=== PATIENT | female | born 1990 | race Caucasian/White ===

== ENCOUNTER 2019-10-23 06:55 | Inpatient (IN) | payer OTHER, SELFPAY ==
[2019-10-23] VITALS (49 sets, daily range): BP systolic 106–132; BP diastolic 58–77; PULSE 68–106; TEMP 35.9–36.7; O2SAT 97–99; BMI 34.7
[2019-10-23] MEDS: Lactated Ringers 1,000 ML 50 ML IV (08:00)
[2019-10-23] MEDS: Oxytocin 30 units/NS 500 ml 30 UNITS/500 ML IV.SOLN IV (08:00)
--- NOTE | 2019-10-23 08:16 | HP.PCM_ITS ---
- Problem List (1) 40 weeks gestation of Status: Acute History Date of Admission: 10/23/19 Final MAY: 10/23/19 Final MAY Source: [place] <20 weeks Gestational age: 40 Weeks and 0 Days History of this : This is a 29 year-old, G [2], P [1], at 40 weeks gestational age. Allergies No Known Allergies Allergy (Verified 10/23/19 07:37) Home Medications: Home Medications Vit No.130/Iron/Folic [ Tablet] 1 ea PO DAILY 10/23/19 Sertraline HCl 50 mg PO DAILY 10/23/19 Smoking Status: Never smoker Alcohol: None Number of Fetus(es): 1 NST - FHR Rate Baby A Baseline: 145 Variability:: Moderate Accelerations:: 15 x 15 Decelerations:: None NST Reactive:: Yes FHR Category:: Category I Uterine Activity:: Q7-8 minutes History Past Pregnancies: PRIOR DELIVERY HISTORY DEL DATE GEST LAB WT LB WT OZ TYPE ANES LABOR [place] 16 Oct 12 39 20 7 8 Vag Epidural No Expected Infant Delivery Method: Spontaneous Vaginal Number of Visits: 14 Review of Systems Constitutional: Denies: Chills, Fever, Weight Change HEENT: Denies: Head Aches, Sinus Congestion, Sinus Drainage Cardiovascular: Denies: Chest Pain, Palpitations Respiratory: Denies: Cough, Shortness of breath at rest, Sputum production Gastrointestinal: Denies: Abdominal Pain, Nausea, Vomiting Genitourinary: Denies: Dysuria Musculoskeletal: Denies: Joint Pain, Joint Tenderness Skin: Denies: Rash, Wounds Neurological: Denies: Numbness, Tingling, Focal weakness Psychiatric: Denies: Anxiety, Depression, Homicidal Ideations, Suicidal Ideations Hematologic/ Lymphatic: Denies: Easy Bruising, Easy Bleeding Physical Exam Vitals: Vital Signs Temp Pulse BP Pulse Ox 97.3 F L 106 H 121/64 H 98 10/23/19 07:35 10/23/19 07:36 10/23/19 07:36 10/23/19 07:36 General: Alert, Oriented x3, No apparent distress HEENT: Atraumatic, Normocephalic. Negative for: Thyromegaly, Lymphadenopathy Cardiovascular: Regular rate, Regular Rhythm Lungs: Clear to auscultation Abdomen: Bowel Sounds Present, Gravid Neurological: Deep Tendon Reflexes 2+/4 and Symmetrical, Neuro grossly intact MANUFACTURING PROCESS TECHNICIAN: Normal external genitalia. Negative for: Vulvar lesions Estimated gestational size: Appropriate for gestational size Presentation: Cephalic Cervix Dilation (cm): 1.5 Station: -2 Effacement (%): 50 Assessment/Plan All Active Problems 40 weeks gestation of (Acute) A/P: This is a 29 year-old, G [2], P [1], at 40 weeks gestational age. Medical induction for decreased movement at term Continuous monitoring Pitocin induction Plans epidural when uncomfortable and declines AROM until after epidural is placed Expect
[2019-10-23 08:23] LABS: Absolute Lymphocyte Count 2.67 X10^3/uL (0.83-4.51); Absolute Neutrophil Count 6.4 X10^3/uL (2.0-7.7); Basophil# 0.09 X10^3/uL; Basophil% 0.8 % (0-1); Eosinophil# 0.25 X10^3/uL; Eosinophils% 2.3 % (0-5); Hematocrit 34.5 % (37-47); Hemoglobin 11.6 g/dL (12.0-15.0); Lymphocyte # 2.67 X10^3/ul (4.0); Mean Corp Hgb Conc 33.6 g/dL (32-36); Mean Corpuscular Hgb 32.2 pg (27.0-32.0); Mean Corpuscular Volume 95.8 fL (81-99); Mean Platelet Vol. 8.7 fl (6.2-12.0); Monocyte# 0.84 X10^3/uL; Monocyte% 7.9 % (0-10); NRBC Flagged by Analyzer 0 % (0-5); Neutrophil # 6.39 X10^3/uL (2.7-7.7); Neutrophil % 59.8 % (47-70); Platelet Count 191 K/mm3 (150-450); RBC Distribution Width SD 48.7 fl (35.1-43.9); White Blood Count 10.7 K/mm3 (4.4-11.0)
--- NOTE | 2019-10-23 13:56 | PCM.PN.BLA ---
Progress Note S: Feeling contractions in the front of stomach and starting to feel them in the lower back. Pain is a 10/14. O: VSS UC Q2-4 minutes FHR 130, +accels, - decels, moderate variability SVE 50/-1 soft anterior A: Induction of labor Pitocin at 12 NST Category I P: To get epidural once contractions are stronger Encouraged to get out of bed or at least do side to side or some hands and knees while in bed Wants AROM after epidural is in place Expect STROKE Vital Signs/Narrative: Vital Signs Temp Pulse BP Pulse Ox 10/23/19 13:50 97.1 F L 82 117/71 99 10/23/19 12:59 82 98 10/23/19 12:58 97.2 F L 126/77 H 10/23/19 12:02 81 98 10/23/19 12:01 96.8 F L 117/64 98 10/23/19 11:00 97.1 F L 81 110/62 98
[2019-10-23] MEDS: Lactated Ringers 500 ML 999 ML IV (15:58)
[2019-10-23] MEDS: fentaNYL-bupivacaine (epidural) 100 ML BAG EPIDURAL ×2 (17:17→21:25)
--- NOTE | 2019-10-23 17:47 | PCM.PN.BLA ---
Progress Note S: Comfortable with epidural in. Able to feel legs and can feel the peak of her contractions at the top of her fundus, but pressure no pain. O: VSS SVE 3/50/-1 anterior soft UC Q2-3 minutes FHR baseline 145, + accels, -decels, moderate variability A: AROM clear fluid Pitocin 18u Pain controlled with epidural NST Category I FHR P: Plans to nap and rest Continue IOL Expect STROKE Vital Signs/Narrative: Vital Signs Temp Pulse BP Pulse Ox 10/23/19 17:38 85 119/73 10/23/19 17:33 86 99 10/23/19 17:31 76 122/67 H 10/23/19 17:28 81 98 10/23/19 17:26 87 120/68 10/23/19 17:23 84 98 10/23/19 17:22 119/69 10/23/19 17:18 81 117/61 98 10/23/19 17:13 85 117/58 L 99 10/23/19 17:08 88 98 10/23/19 17:07 95 111/62 10/23/19 17:03 94 124/68 H 98 10/23/19 16:58 83 98 10/23/19 16:57 120/65 10/23/19 16:53 93 98 10/23/19 16:51 94 132/62 H 10/23/19 16:48 88 99 10/23/19 16:47 90 132/64 H 10/23/19 16:43 89 99 10/23/19 16:42 88 124/69 H 10/23/19 16:38 84 98 10/23/19 16:37 127/60 H 10/23/19 16:26 82 120/63 10/23/19 15:38 98.0 F 95 97 10/23/19 15:37 116/66 10/23/19 14:45 84 97 10/23/19 14:44 89 110/62 10/23/19 14:43 98.1 F 10/23/19 13:50 97.1 F L 82 117/71 99
[2019-10-23] MEDS: Lactated Ringers 1,000 ML 200 ML IV (19:37)
[2019-10-23] MEDS: Mag Hydrox/Al Hydrox/Simeth 30 ML UDC PO (20:23)
[2019-10-23] MEDS: Ondansetron 4 MG/2 ML Vial IV (22:17)
[2019-10-23] MEDS: Oxytocin 30 units/NS 500 ml 30 UNITS/500 ML IV.SOLN 334 UNITS IV (23:41)
[2019-10-24] VITALS (20 sets, daily range): BP systolic 97–117; BP diastolic 57–65; PULSE 72–92; RESP 16–18; TEMP 36.3–36.6; O2SAT 98
--- NOTE | 2019-10-24 | PLAC_PTH ---
PATIENT: ANG ROJAS LOC: [facility] U#:[id number] AGE/SX: 29/F ROOM: WP020 RE10/23/[address]: Ruth David CNM : 1990 BED: 1 DIS: 10/25/2019 SPEC #: [id number] RECD: 10/24/19 04:59 STATUS: HOANG REQ #: [id number] SANGEETA: 10/24/19 00:[address]: Ruth David DEPT: SURGICAL PATHOLOGY RECD BY: Neil Corrales ENTERED: 10/24/19 07:41 SP TYPE: PLACENTA OTHR DR: Dr. Ramy Pena, DO Tissues: Placenta, NOS Procedures: Surgery Specimen Level V HEADER OPERATION: Vaginal delivery PRE-OP DIAGNOSIS: Abruption TISSUE SUBMITTED: Placenta MICROSCOPIC DIAGNOSIS Navarrete placenta (567 gm): Umbilical cord - trivascular with no inflammation. Placental membranes - no pathologic change. Placental disc - Willis-Jean change, mildly increased intraparenchymal fibrin plaques and remote infarct. AM:giovanna 10/28/19 MICROSCOPIC DESCRIPTION Slides are reviewed. GROSS DESCRIPTION SPECIMEN: PLACENTA / CLINICAL INFORMATION: A. Weight: 3.641 kg B. Gestational Age: 40 weeks C. Sex: Female PLACENTAL WEIGHT (POST FIXATION): 567 gm PLACENTAL DIMENSIONS: 19 x 18 x 3.5 cm PLACENTAL SHAPE: Usual ovoid PLACENTAL WEIGHT FOR GESTATIONAL AGE: Within 10-99th percentile MEMBRANES - Present A. Insertion: Marginal B. Site of rupture from edge: 8 cm from edge of placental disc C. Color of membrane: Box-beyer D. Abnormalities: None UMBILICAL CORD - Present A. Color: Box-beyer B. Insertion: Central C. Length: 56 cm D. Diameter: 1 cm E. Number of vessels: Three F. Abnormalities: None PLACENTAL DISC - Present A. Color of surface: Box-beyer B. surface abnormalities: None C. Maternal cotyledons: Intact with minimal tears. A small amount of blood clots are noted adherent to the maternal surface of placenta. D. Attached retro placental clot: No clot E. Cut surface: Dark red and spongy F. Lesions: Sections reveal a box, indurated area in the peripheral portion of the placenta measuring 2.5 x 1.5 x 1.5 cm. G. Separate clot: Also submitted are multiple fragments of blood clot weighing in aggregate 75 gm and measuring in aggregate 11 x 9 x 3 cm. SECTIONS SUBMITTED: 1. Membrane roll 2. Cord, maternal end 3. Cord, end 4. Placental disc, and maternal surfaces 5. Placental disc, and maternal surfaces 6. Placental disc, and maternal surfaces, lesion SJ:giovanna 10/25/19 TC:5 CPT: 74048
[2019-10-24] MEDS: Methylergonovine 0.2 MG/ML Ampul IM (00:07)
[2019-10-24] MEDS: miSOPROStol 200 MCG Tablet 1000 MCG RECTAL (00:27)
--- NOTE | 2019-10-24 00:37 | OP.PCM_ITS ---
Problem List (1) 40 weeks gestation of Status: Acute Vaginal Delivery Maternal Presentation: Medically Indicated Induction Method of Induction: Pitocin Medical Reason for Induction: - - Decreased movement at term Amniotic Membrane Rupture Type: Artificial Rupture of Membrane time: 1854 Amniotic Fluid Description: Clear Final MAY: 10/23/19 Gestational age: 40 Weeks and 1 Days Date of Procedure: 10/23/19 Pre-Operative Diagnosis: labor Post-Operative Diagnosis: Surgery/ Procedure Performed: Spontaneous Vaginal Delivery Type of Anesthesia: Epidural Description of Procedure: Patient was FD/+3 station on arrival to room. Patient began to push followed by decreased heart rate. Left side laying position with Dr. Freitas pagekandice. On left side with Dr. Freitas present, patient was able to push and delivered head in OA with loose nuchal x1 reduced at perineum. Body easily delivered over with a loose body cord x1. The infant was placed on the maternal abdomen and further attended by nursery personnel with bulb suction and stimulation. The cord was doubly clamped then cut by FOB with CNM supervision at approximately 30 seconds of life. was taken to warmer to be evaluated by product support technician and nursery personnel. IV Pitocin started per protocol. At this time, Dr. Freitas excused from room. Second degree perineal lacerated noted and repaired with a 3.0 rapide. With gentle cord traction spontaneous delivery of placenta followed immediately by 400mL of blood. Fundal massage given, firm and midline, but continual trickle of blood. Methergine IM given in right thigh. Manual expression of retained fragments in which patient tolerated well. On inspection placenta appeared to have a three vessel cord, but placenta in fragments, signs of infarction with possible abruption. Placenta sent to lab. Fundus firm and midline upon massage, but 50mL blood out with massage. Cytotec 1000mcg rectal given per senior writer. EBL 450. Apgars 7/9. Sponge counts correct x 2. Presentation: Vertex, YANNA Placental Delivery Description: Spontaneous - with retained fragments manually expressed Placenta Disposition: Routine to Lab Cord Vessel Description: 3 Vessels Cord Entanglement: Around neck x 1, loose - and body loose Drain: Prince to straight drain Estimated Blood Loss: 450 Infant A gender: Female (1 minute): 7 (5 minute): 9 Episiotomy Description: None Laceration: Perineal Extension/lac, 2nd degree Medications given after delivery: IV Pitocin, IM Methergin, - - Cytotec 1000mcg
--- NOTE | 2019-10-24 00:50 | DCINST_ITS ---
Discharge Diet: No Restrictions Discharge Activity: Return to Normal Activity, May not drive while taking narcotic pain medications., May Shower May resume sexual activity in: 4-6 weeks Additional Activity Instructions:: Nothing in the vagina for 4-6 weeks. You may return to work/school in 6 weeks. Call your doctor if your incision/area has: Continuous Slow Oozing, Sudden Increased Bleeding, Increased Pain/ Swelling, Increased Redness, Foul Smelling Discharge Additional Instructions: If you experience any of the following, contact your healthcare provider. * Bleeding that soaks a pad every hour for 2 hours * Fever 100.4 or higher * Unrelieved incision or abdominal pain * Swelling, redness, discharge or bleeding from your incision or episiotomy site * Your incision begins to separate * Problems urinating (including inability to urinate or burning while urinating). * Visual changes * Severe headache * Flu-like symptoms * Pain or redness in one of both of your breasts * Pain, warmth, tenderness or swelling in your legs, especially the calf area * Frequent nausea and vomiting * Symptoms of depression or anxiety If you experience any of the following, call 911 or go to the nearest Emergency Room. * Chest pain * Problems breathing * Seizure activity * Partial or complete paralysis of a body part, slurred speech, weakness or drooping of the face, or a sudden inability to walk or hold your balance Allergies/Adverse Reactions: Allergies No Known Allergies Allergy (Verified 10/23/19 07:37) Medications to take at Discharge Vit No.130/Iron/Folic [ Tablet] 1 ea PO DAILY 10/23/19 Sertraline HCl 50 mg PO DAILY 10/23/19 When: Call to make an appointment with your doctor in 6 weeks. If you had elevated Blood Pressure or 4th degree laceration you will need to be seen in 2 weeks. Primary Care Physician: Ramy Pena DO [Primary Care Provider] - Test Results: Test results from this visit will be discussed in further detail at your follow- up appointment, if applicable.
[2019-10-24 05:19] LABS: Hematocrit 35.2 % (37-47); Hemoglobin 11.5 g/dL (12.0-15.0); Mean Corp Hgb Conc 32.7 g/dL (32-36); Mean Corpuscular Hgb 31.9 pg (27.0-32.0); Mean Corpuscular Volume 97.8 fL (81-99); Mean Platelet Vol. 8.9 fl (6.2-12.0); Platelet Count 201 K/mm3 (150-450); RBC Distribution Width SD 50.5 fl (35.1-43.9)
[2019-10-24] MEDS: Ibuprofen 600 MG Tablet PO ×3 (08:46→22:07)
--- NOTE | 2019-10-24 08:46 | PCM.PN.OB ---
Patient Problems: Active and Suspected Problems 40 weeks gestation of (Acute) Subjective: Very tired this morning. Reports sleeping 1.5 hours total. Cramping with , rates pain a 3/10. Objective: VSS. Afebrile. Fundus u/1, firm, midline. Lochia rubra moderate. Hg stable. WBC on admission 10.7, now 18.0. One dose of Gentamycin given after delivery. Reports anxiety and wishes to increase Zoloft. - Physical Exam Vitals/I&O's: Vital Signs Temp Pulse Resp BP Pulse Ox 97.5 F L 77 18 110/65 98 10/24/19 08:28 10/24/19 08:28 10/24/19 08:28 10/24/19 08:28 10/24/19 08:28 Oxygen Delivery Method Room Air Weight: 97.522 kg Body Mass Index (BMI) 34.7 Intake and Output for Last 24 Hours 10/22/19 10/23/19 10/24/19 23:59 23:59 23:59 Intake Total 3005.76 / 3005.76 1557.5 / 1557.5 Output Total 2049 / 2049 2250 / 2250 Balance 955.76 / 955.76 -692.5 / -692.5 General: Alert, Oriented x3, Cooperative HEENT: Atraumatic, PERRLA, EOMI, Normocephalic Neck: Supple, No JVD, Negative Carotid Bruits Lungs: Clear to auscultation, Normal air movement Cardiovascular: Regular rate, No murmurs Abdomen: Bowel Sounds Present, Soft, Non Tender, - - fundus u/2 Extremities: No edema, Capillary Refill Less than 3 Seconds Skin: No rashes, No breakdown, - - perineal laceration/repair Musculoskeletal: No Tenderness to Palpation of Joints or Extremities Neurological: Cranial nerves II-XII grossly intact Psych/Mental Status: Normal Affect, Appropriate, Anxious Laboratory Results 10/23/19 08:00: Blood Type A POSITIVE, Antibody Screen NEGATIVE 10/24/19 04:50: WBC 18.0 H, RBC 3.60 L, Hgb 11.5 L, Hct 35.2 L, MCV 97.8, MCH 31.9, MCHC 32.7, RDW Std Deviation 50.5 H, RDW Coeff of Wilfredo 14.0, Plt Count 201, MPV 8.9 Current Medications Acetaminophen (Tylenol) 1,000 mg PO Q8H PRN PRN PRN Reason: Pain Score 1-3/10 Bisacodyl (Dulcolax) 10 mg RECTAL UD PRN PRN Reason: If no BM Dibucaine (Dibucaine) 1 applic TOPICAL TID PRN PRN; Protocol PRN Reason: Discomfort Hydrocortisone (Hytone) 1 applic TOPICAL TID PRN PRN; Protocol PRN Reason: Discomfort Ibuprofen (Motrin) 600 mg PO Q6H PRN PRN PRN Reason: Pain Score 1-3/10 Methylergonovine Maleate (Methergine) 0.2 mg IM X1 PRN PRN Reason: Excess bleeding/uterine atony Last Admin: 10/24/19 00:07 Dose: 0.2 mg Documented by: Ondansetron HCl (Zofran) 4 mg IV Q4H PRN PRN PRN Reason: Nausea Oxycodone HCl (Oxyir) 5 - 10 mg PO Q4H PRN PRN PRN Reason: Pain Score 4-10/10 Multivit/Folic Acid/Iron (Prenatabs Fa) 1 tablet PO DAILY [facility] Senna/Docusate Sodium (Senokot-S, Deneen-Colace) 1 - 2 tablet PO DAILY PRN PRN PRN Reason: Constipation Sertraline HCl (Zoloft) 50 mg PO DAILY [facility] Simethicone (Mylicon) 80 mg PO PCHS PRN PRN Reason: Indigestion/Stomach pain Sodium Chloride () 5 - 15 ml IV UD PRN PRN Reason: SALINE FLUSH Zolpidem Tartrate (Ambien (Generic)) 5 mg PO QHS PRN PRN PRN Reason: Insomnia Medical Necessity - Tobacco Use Smoking Status: Former smoker Assessment/Plan All Active Problems 40 weeks gestation of (Acute) A/P: s/p day #1 female Reports mild cramping, will start to take Motrin and Tylenol as needed Increased anxiety, will increase Zoloft to 75mg on discharge x2 weeks then 100mg QD To call for a 2 week follow up if anxiety increases or s/s of depression Normal involution and lochia, to continue orders Wishes to discharge first thing tomorrow morning
[2019-10-24] MEDS: Prenatal Vits Tablet 1 TABLET PO (09:58)
[2019-10-24] MEDS: Sertraline 50 MG Tablet PO (09:58)
[2019-10-24] MEDS: Acetaminophen 500 MG Tablet 1000 MG PO (12:00)
[2019-10-25 01:48] VITALS: BP 101/57; PULSE 77
[2019-10-25 01:57] VITALS: BP 101/57; PULSE 77; RESP 16; TEMP 36.8
[2019-10-25] MEDS: Ibuprofen 600 MG Tablet PO (05:04)
[2019-10-25 09:05] VITALS: BP 119/56; PULSE 81; RESP 14; TEMP 36.3
[2019-10-25 09:07] VITALS: BP 119/56; PULSE 81
--- NOTE | 2019-10-25 10:00 | PCM.PN.OB ---
Patient Problems: Active and Suspected Problems 40 weeks gestation of (Acute) Objective: Patient without complaints. Breast-feeding going well. Minimal vaginal bleeding now. Ready to go home today. - Physical Exam Vitals/I&O's: Vital Signs Temp Pulse Resp BP Pulse Ox 97.4 F L 81 14 119/56 L 98 10/25/19 09:05 10/25/19 09:07 10/25/19 09:05 10/25/19 09:07 10/24/19 15:00 Oxygen Delivery Method Room Air Weight: 215 lb Body Mass Index (BMI) 34.7 Intake and Output for Last 24 Hours 10/23/19 10/24/19 10/25/19 23:59 23:59 23:59 Intake Total 3005.76 / 3005.76 1557.5 / 1557.5 Output Total 2049 / 2049 2250 / 2250 Balance 955.76 / 955.76 -692.5 / -692.5 Current Medications Acetaminophen (Tylenol) 1,000 mg PO Q8H PRN PRN PRN Reason: Pain Score 1-3/10 Last Admin: 10/24/19 12:00 Dose: 1,000 mg Documented by: Bisacodyl (Dulcolax) 10 mg RECTAL UD PRN PRN Reason: If no BM Dibucaine (Dibucaine) 1 applic TOPICAL TID PRN PRN; Protocol PRN Reason: Discomfort Hydrocortisone (Hytone) 1 applic TOPICAL TID PRN PRN; Protocol PRN Reason: Discomfort Ibuprofen (Motrin) 600 mg PO Q6H PRN PRN PRN Reason: Pain Score 1-3/10 Last Admin: 10/25/19 05:04 Dose: 600 mg Documented by: Methylergonovine Maleate (Methergine) 0.2 mg IM X1 PRN PRN Reason: Excess bleeding/uterine atony Last Admin: 10/24/19 00:07 Dose: 0.2 mg Documented by: Ondansetron HCl (Zofran) 4 mg IV Q4H PRN PRN PRN Reason: Nausea Oxycodone HCl (Oxyir) 5 - 10 mg PO Q4H PRN PRN PRN Reason: Pain Score 4-10/10 Multivit/Folic Acid/Iron (Prenatabs Fa) 1 tablet PO DAILY [facility]EE[facility] Last Admin: 10/24/19 09:58 Dose: 1 tablet Documented by: Senna/Docusate Sodium (Senokot-S, Deneen-Colace) 1 - 2 tablet PO DAILY PRN PRN PRN Reason: Constipation Sertraline HCl (Zoloft) 50 mg PO DAILY [facility] Last Admin: 10/24/19 09:58 Dose: 50 mg Documented by: Simethicone (Mylicon) 80 mg PO PCHS PRN PRN Reason: Indigestion/Stomach pain Sodium Chloride () 5 - 15 ml IV UD PRN PRN Reason: SALINE FLUSH Zolpidem Tartrate (Ambien (Generic)) 5 mg PO QHS PRN PRN PRN Reason: Insomnia Medical Necessity - Tobacco Use Smoking Status: Former smoker Assessment/Plan All Active Problems 40 weeks gestation of (Acute) Doing well day #2 status post routine spontaneous vaginal delivery. Will discharge to home with routine instructions.
[2019-10-25] MEDS: Prenatal Vits Tablet 1 TABLET PO (10:22)
[2019-10-25] MEDS: Senna/Docusate Sodium 1 Tablet PO (10:22)
[2019-10-25] MEDS: Sertraline 50 MG Tablet PO (10:23)
[2019-10-28 14:08] LABS: Pathology Specimen OB SEE PATHOLOGY REPORT
== END 2019-10-25 12:20 | disposition home or self-care (01) | DRG 807 ==
PROVIDERS: Admitting Provider Obstetrics & Gynecology; PCP Student in an Organized Health Care Education/Training Program; Referring Provider Obstetrics & Gynecology; Visit Provider Obstetrics & Gynecology
DX: O36.8130 Decreased fetal movements, third trimester, not applicable or unspecified (principal); Z37.0 Single live birth; O70.1 Second degree perineal laceration during delivery; O69.81X0 Labor and delivery complicated by cord around neck, without compression, not applicable or unspecified; Z3A.40 40 weeks gestation of pregnancy; Z87.891 Personal history of nicotine dependence
CPT/HCPCS: 59025; 59050; 85025; 85027; 86850; 86900; 86901; 88307; 99218; J7120; G0378; J2405

== ENCOUNTER 2020-03-16 08:53 | Day surgery (SDC) | payer OTHER, SELFPAY ==
[2019-10-23 08:23] VITALS: BMI 34.7
[2020-03-05 18:03] LABS: Hemoglobin 13.1 g/dL (12.0-15.0); Mean Corpuscular Hgb 29.7 pg (27.0-32.0); Mean Platelet Vol. 8.5 fl (6.2-12.0); Platelet Count 338 K/mm3 (150-450); RBC Distribution Width SD 44.3 fl (35.1-43.9); Red Blood Count 4.41 M/mm3 (4.2-5.4); White Blood Count 7.4 K/mm3 (4.4-11.0)
[2020-03-05 18:08] LABS: Partial Thromboplast Time 25.8 Seconds (24.1-36.2); Prothrombin Time (Protime)PT. 12.5 SECONDS (11.7-14.9)
[2020-03-05 18:21] LABS: AST(SGOT) 16 U/L (15-37); Alanine Aminotransfer ALT/SGPT 24 U/L (13-56); Albumin, Serum 3.7 g/dL (3.2-5.0); Alkaline Phosphatase 78 U/L (45-117); Bilirubin, Direct 0.08 mg/dL (0.00-0.30); Protein, Total 7.7 g/dL (6.4-8.2)
[2020-03-05 18:22] LABS: Internal QC Validated? YES +Cl - CLEAR BKGD; Pregnancy, Serum, hCG Quali. NEGATIVE Negative
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
[2020-03-16] VITALS (7 sets, daily range): BP systolic 88–108; BP diastolic 50–76; PULSE 71–83; RESP 15–16; TEMP 36.1–36.3; O2SAT 94–99; BMI 31.0
[2020-03-16] MEDS: Lactated Ringers 1,000 ML 100 ML IV (09:30)
[2020-03-16 09:33] LABS: Internal QC Validated? YES +Cl - CLEAR BKGD
[2020-03-16 09:34] LABS: Pregnancy, Urine Negative Negative
--- NOTE | 2020-03-16 10:28 | OP.PCM_ITS ---
Report of Operation Date of Procedure: 03/16/20 Pre-Operative Diagnosis: Desires Permanent Sterilization Post-Operative Diagnosis: Desires Permanent Sterilization Surgery/Procedure Performed:: Laparoscopic Bilateral Salpingectomy Description of Surgical Findings:: Normal pelvis wellness director: Alina Harvey Type of Anesthesia:: General - Endotracheal Anesthesiologist: Amadou Sainz Specimen's removed: Bilateral fallopian tubes Estimated Blood Loss (mL): Minimal Fluids Replaced: Crystalloid Description of Procedure: Surgeon: Teo Freitas MD, FACOG Indications: This is a 30 year old patient who has the above diagnosis. She has considered sterilization for quite some time. She is aware of the permanent nature of the procedure, the failure rate of 1-2%, and the availability of other nonpermanent control options. All questions were answered to consider the patient well-informed. Procedure: The patient was taken to the operating room where after induction of general anesthesia, she was placed in the dorsolithotomy position and prepped and draped in the usual sterile fashion. The bladder was drained of approximately 50 cc of clear yellow urine with a catheter. Anterior cervix was grasped with the tenaculum. Conn cannula was placed and attention was turned toward the laparoscopic portion of the procedure. Approximately 20 cc of half percent ropivacaine was injected subumbilically, suprapubically and midway between. A 5 mm bladeless trocar was placed subumbilically and intraperitoneal placement confirmed. After CO2 insufflation was complete, a 5 mm bladeless trocar was introduced suprapubically. The above findings were noted. A 5 mm bladeless port was then placed midway between these 2 ports for tubal manipulation. Each fallopian tube was identified to its fimbriated end and an Enseal device was used to divide the mesosalpinx to the uterus. Tubes were removed through the lower 5 mm port. The peritoneal cavity and upper abdomen were examined and noted to be normal. Photographs were taken. Laparoscopic instruments with as much CO2 gas as possible were removed and incisions were closed with interrupted 4-0 Monocryl suture. Steri-Strips placed across the incision. Vaginal instruments were removed. The patient tolerated the procedure well was taken to recovery room in satisfactory condition and sponge instrument and needle counts were all reportedly correct. Estimated blood loss for the case was minimal. There were no apparent complications of the surgery. Cefotan 2 g IV was given prior to beginning the operative procedure Specimens to pathology was bilateral tubes Grafts/Implants Used: None - Complications None - Admit VTE Documentation VTE Present on Admission: Yes VTE Mechan Device Prophylaxis: SCD's
--- NOTE | 2020-03-16 10:33 | DCINST_ITS ---
Discharge Diet: No Restrictions - Increase fluid intake for the next 48 hours. Discharge Activity: Return to Normal Activity, May Drive - when you are no longer taking pain/narcotic medicines., May Shower, May Take a Tub Bath May resume sexual activity in: 3 weeks Additional Activity Instructions:: Ambulate often the next week after surgery. Nothing in the vagina for 5 days. Call your doctor if your incision/area has: Continuous Slow Oozing, Sudden Increased Bleeding, Increased Pain/ Swelling, Increased Redness, Foul Smelling Discharge Call your doctor if you observe: Fever of 101 or Higher, Inability to urinate, Inability to have a bowel movement, Using more than one pad per hour Allergies/Adverse Reactions: Allergies No Known Allergies Allergy (Verified 03/16/20 09:18) Medications to take at Discharge Vit No.130/Iron/Folic [ Tablet] 1 ea PO QHS 10/23/19 Cholecalciferol (Vitamin D3) [Vitamin D3] 2,000 unit PO QHS 02/28/20 Sertraline HCl [Zoloft] 100 mg PO QHS 02/28/20 Oxycodone [Oxyir] 5 mg PO Q6H PRN PRN 7 Days #10 tablet 03/16/20 The following prescriptions were given: Oxycodone [Oxyir] 5 mg PO Q6H PRN PRN 7 Days #10 tablet PRN Reason: Pain Score 6-10/10 Transmission Status: Sent to [facility] Primary Care Physician: Ramy Pena DO [Primary Care Provider] - Test Results: Test results from this visit will be discussed in further detail at your follow- up appointment, if applicable. Please Follow Up With: Teo Freitas MD - [phone] When: 2 to 3 weeks
--- NOTE | 2020-03-16 10:35 | FALS_PTH ---
PATIENT: ANG ROJAS [place] [facility] [id number] AGE/SX: 30/F ROOM: RE03/16/[address]: Dr. Teo Freitas MD : 1990 BED: DIS: 03/16/2020 SPEC #: [id number] RECD: 03/16/20 11:49 STATUS: HOANG REBrittany #: [id number] SANGEETA: 03/16/20 10:[address]: Teo Freitas DEPT: SURGICAL PATHOLOGY RECD BY: Usama Kirkpatrick ENTERED: 03/16/20 12:17 SP TYPE: FALL TUBES OTHR DR: Dr. Ramy Pena, DO Tissues: Fallopian tube Procedures: Surgery Specimen Level II HEADER OPERATION: Laparoscopic bilateral salpingectomy PRE-OP DIAGNOSIS: Sterilization TISSUE SUBMITTED: Bilateral fallopian tubes MICROSCOPIC DIAGNOSIS Bilateral fallopian tubes, salpingectomy: Bilateral fallopian tubes including fimbrial ends, no pathologic diagnosis. BERNADINE:giovanna 03/17/20 MICROSCOPIC DESCRIPTION Slides are reviewed. GROSS DESCRIPTION Received in fixative is one container labeled with the patient's name and designated bilateral fallopian tubes. The specimen consists of bilateral fallopian tubes including fimbrial ends measuring 7 cm in length and 0.5 cm in diameter and 8 cm in length and 0.5 cm in diameter. The fallopian tubes are not identified as right or left. Sections reveal unremarkable cut surfaces. Automatic Spooler Operator sections are submitted in two cassettes with each cassette containing one fallopian tube. / BERNADINE:giovanna 03/16/20 TC:4 CPT: 87865 x2
[2020-03-16] MEDS: Ropivacaine 0.5% 30 ML Vial (10:54)
== END 2020-03-16 13:46 | disposition home or self-care (01) ==
LOC: SDC 08:53 → AC 08:54
PROVIDERS: Anesthesiology; PCP Student in an Organized Health Care Education/Training Program; Referring Provider Obstetrics & Gynecology; Visit Provider Obstetrics & Gynecology
PROC: (CPT 58661; principal; 2020-03-16 10:20)
DX: Z30.2 Encounter for sterilization (principal); F32.9 Major depressive disorder, single episode, unspecified; F41.9 Anxiety disorder, unspecified; Z87.891 Personal history of nicotine dependence
CPT/HCPCS: 00840; 58661; 36415; 80076; 81025; 84703; 85027; 85610; 85730; 86850; 86900; 86901; 87635; 88302; 94799; J7120; C1760; J2405; U0003

== ENCOUNTER 2020-11-19 08:35 | Outpatient (RCR) | payer OTHER, SELFPAY ==
[2020-03-16 09:19] VITALS: BMI 31.0
== END 2021-01-12 23:59 ==
LOC: IMMUN 08:35
PROVIDERS: PCP Student in an Organized Health Care Education/Training Program; Visit Provider Family Medicine
DX: Z23 Encounter for immunization (principal)
CPT/HCPCS: 0001A; 0002A; 91300

== ENCOUNTER 2023-11-04 14:20 | Emergency (ER) | payer OTHER, SELFPAY ==
[2023-11-04 14:25] VITALS: BP 129/78; PULSE 83; RESP 16; TEMP 36.4; O2SAT 97; BMI 38.1
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
[2023-11-04] MEDS: Ibuprofen 600 MG Tablet PO (15:18)
[2023-11-04 15:26] VITALS: BP 129/78; PULSE 83; RESP 16; TEMP 36.4; O2SAT 97
== END 2023-11-04 15:32 | disposition home or self-care (01) ==
PROVIDERS: Emergency Provider Emergency Medicine; PCP Student in an Organized Health Care Education/Training Program; Visit Provider Emergency Medicine
DX: S60.212A Contusion of left wrist, initial encounter (principal); Y92.410 Unspecified street and highway as the place of occurrence of the external cause; S46.911A Strain of unspecified muscle, fascia and tendon at shoulder and upper arm level, right arm, initial encounter; V43.52XA Car driver injured in collision with other type car in traffic accident, initial encounter; W22.10XA Striking against or struck by unspecified automobile airbag, initial encounter
CPT/HCPCS: 99282

== ENCOUNTER 2024-06-22 18:28 | Emergency (ER) | payer OTHER, SELFPAY ==
[2024-06-22 18:29] VITALS: BP 124/66; PULSE 124; RESP 20; TEMP 36.3; O2SAT 94; BMI 36.7
[2024-06-22 18:42] VITALS: O2SAT 94
--- NOTE | 2024-06-22 18:58 | EDS_ITS ---
HPI HPI - URI History of Present Illness Chief Complaint: Cough Informant: patient Onset/Context/Timing Onset: Yesterday Context: Sudden Onset Timing: Intermittent Quality: Aching, sharp Location: Right chest worse than left Worsened by: - (Nothing) Relieved by: - (Nothing) Associated Symptoms Associated Symptoms: Positive for Nasal Congestion, Headache, Sinus Pressure, Myalgias, Nausea, Shortness of Breath, Chest Pain and Productive Cough; Negative for Vomiting, Diarrhea, Nonproductive cough or Hemoptysis Narrative Narrative: Patient presents with cough and congestion that began yesterday. Patient states it began rather suddenly. Patient states that it has been intermittent. Patient admits to some pain in her chest. Patient states it is worse over the right side of her chest. Patient describes it as aching and sharp. Patient states it is worse with deep breathing. Patient states several family members have been diagnosed with pneumonia recently. Patient admits to some nasal congestion and sinus pressure. Patient also admits to some rhinorrhea. Patient admits to some shortness of breath and nausea. Patient states she is coughing up some brown sputum. Patient denies any fevers or chills. ROS ROS ED Constitutional Constitutional ED: Denies chills or fever(s) Eyes Eyes: Denies blurry vision or change in vision ENT ENT ED: Reports rhinorrhea; Denies sore throat Cardiovascular Cardiovascular: Reports chest pain; Denies palpitations Respiratory/Chest Respiratory/Chest: Reports cough and dyspnea Gastrointestinal Gastrointestinal: Reports nausea; Denies vomiting Genitourinary Genitourinary ED: Denies dysuria or hematuria Musculoskeletal Musculoskeletal: Reports back pain and neck pain Integumentary Denies abscess or rash Neurologic Neurologic: Reports headache(s); Denies weakness Allergic/Immunologic Allergic/Immunologic ED: Denies mouth swelling or urticaria [facility] Medical History (Updated 06/22/24 @ 21:[address] Neri Gaffney, DO) Anxiety Depression Home Medications ?Medication ?Instructions ?Recorded ?Last Taken ?Type vits no.130-ferrous fum 1 ea PO QHS supplement 10/23/19 10/22/19 20:00 History 27 mg iron-folic acid 800 mcg tablet cholecalciferol (vitamin D3) 50 2,000 unit PO QHS 02/28/20 Unknown History mcg (2,000 unit) capsule sertraline 100 mg tablet 100 mg PO QHS 02/28/20 Unknown History azithromycin 250 mg tablet 250 mg PO DAILY #4 TABLETS 06/22/24 Unknown Rx Allergy/AdvReac Type Severity Reaction Status Date / Time dog dander Allergy Mild Rash Verified 06/22/24 18:29 nickel Allergy Mild Itching Verified 06/22/24 18:29 Surgical History (Updated 06/22/24 @ 19:[address] Neri Gaffney DO) Hx of tubal ligation Social History Smoking Status: Current every day smoker tobacco type: e-cigarettes EXAM Physical Exam Const Vital Signs: 06/22/24 18:29 06/22/24 18:42 06/22/24 19:53 Temperature 97.3 F L Temperature Source Temporal Pulse Rate 124 H Respiratory Rate 20 H Respiratory Effort Normal Non-Labored Respiratory Depth Normal Respiratory Pattern Normal Blood Pressure 124/66 H Blood Pressure Mean 85 Pulse Ox 94 96 Oxygen Delivery Method Room Air Room Air Room Air 06/22/24 20:28 06/22/24 21:04 Temperature 103.2 F H 103.2 F H Temperature Source Oral Pulse Rate 112 H 116 H Respiratory Rate 18 22 H Respiratory Effort Respiratory Depth Respiratory Pattern Blood Pressure 117/80 99/56 L Blood Pressure Mean 92 70 Pulse Ox 97 94 Oxygen Delivery Method Room Air Positive well nourished and well developed General Appearance ED: well developed and NAD HEENT Reports moist mucous membranes normocephalic Neck supple, no meningeal signs and no JVD Resp normal respiratory effort and clear to auscultation bilaterally Auscultation: diminished lung sounds diffuse Cardio Rate: regular rate Rhythm: regular rhythm GI non-tender and non-distended Palpation: soft Extremity normal to inspection and full ROM General Extremety ED: Negative for tenderness Neuro oriented x3, CN's II-XII intact bilaterally and no sensory deficits noted Sensorium / Orientation: alert Motor Exam: strength 5/5 throughout Psych mental status grossly normal MDM MDM MDM Narrative Medical decision making narrative: Differential diagnose includes pneumonia, bronchitis, and viral upper respiratory infection. Chest x-ray will be obtained to assess for pneumonia and pneumothorax. CBC will be obtained to assess for leukocytosis and anemia. Basic metabolic profile will be obtained to assess for electrolyte abnormality renal function. COVID-19, influenza, and RSV PCR will be obtained to assess for viral illness. Lab Data Attestation: I reviewed the patient's lab results. Lab results narrative: CBC was reviewed. There is a slight leukocytosis of 12.4. The remainder is within normal limits. Basic metabolic profile was reviewed and was within normal limits. COVID-19 PCR was reviewed and was negative. Influenza PCR was reviewed and was negative for influenza A and influenza B. RSV PCR was reviewed and was negative. Labs: Laboratory Results - last 24 hr 06/22/24 19:10 WBC 12.4 H RBC 4.51 Hgb 13.9 Hct 41.5 MCV 92.0 MCH 30.8 MCHC 33.5 RDW Std Deviation 43.0 RDW Coeff of Wilfredo 12.8 Plt Count 278 MPV 8.1 Immature Gran % (Auto) 0.400 Neut % (Auto) 78.2 H Lymph % (Auto) 13.2 L Preston % (Auto) 6.2 Eos % (Auto) 1.5 Baso % (Auto) 0.5 Absolute Neuts (auto) 9.7 H Absolute Lymphs (auto) 1.63 Nucleated RBC % 0 Sodium 140 Potassium 3.7 Chloride 107 Carbon Dioxide 27.0 Anion Gap 5 BUN 8 Creatinine 1.07 H Estim Creat Clear Calc 90.76 Est GFR (MDRD) Af Amer 76 Est GFR (MDRD) Non-Af 63 BUN/Creatinine Ratio 7.5 L Glucose 107 H Calcium 8.8 Radiography Diagnostic Testing: Clinical Impression(s) from Imaging Studies Chest X-Ray 06/22/24 19:20 IMPRESSION: Mild bilateral lower lobe infiltrates slightly more pronounced on the left Electronically Signed: Jesse Colbert MD at 19:52 EST Reading Location ID and State: [facility] / [place] Tel , Service support , Portable 1 view chest x-ray was obtained. On my independent interpretation, lung bautista show mild bilateral lower lobe infiltrates, worse on the left. There is normal cardiac silhouette. Bony thorax is normal. Radiologist also interpreted the x-ray and agrees. Treatment and Re-Evaluation Narrative: Nicotine cessation was discussed. Patient was given Tylenol here. Patient was given a dose of Zithromax here. Patient was given a prescription for Zithromax. Patient was instructed to drink plenty of fluids. Patient was instructed to follow-up with her primary care physician in 5 to 7 days. Patient was instructed return if worse in any way. Patient understood and was agreeable with the plan. All questions were answered. Discharge Plan Triage Chief Complaint: Cough ED Provider: Neri Gaffney Dx/Rx/DC Orders Clinical Impression: Pneumonia, Nicotine use disorder Instructions: ED Pneumonia (Adult) Prescriptions: New azithromycin 250 mg tablet 250 mg PO DAILY Qty: 4 0RF No Action vit no.[id number] 1 EACH tablet 1 ea PO QHS cholecalciferol (vitamin D3) 2,000 UNIT capsule 2,000 unit PO QHS sertraline 100 MG tablet 100 mg PO QHS Rx Instructions: Take one tablet daily after two weeks of 75mg. To start on day 15 Primary Care Provider: Ramy Pena Referrals: Ramy Pena DO [Primary Care Provider] - 5-7 Days Print Language: Romanian Disposition Disposition: Home, Self Care
[2024-06-22 19:18] LABS: Absolute Lymphocyte Count 1.63 X10^3/uL (0.83-4.51); Absolute Neutrophil Count 9.7 X10^3/uL (2.0-7.7); Basophil# 0.06 X10^3/uL; Basophil% 0.5 % (0-1); Eosinophil# 0.19 X10^3/uL; Eosinophils% 1.5 % (0-5); Hematocrit 41.5 % (37-47); Hemoglobin 13.9 g/dL (12.0-15.0); Lymphocyte # 1.63 X10^3/ul (0.83-4.51); Lymphocyte % 13.2 % (19-41); Mean Corp Hgb Conc 33.5 g/dL (32-36); Mean Corpuscular Hgb 30.8 pg (27.0-32.0); Mean Platelet Vol. 8.1 fl (6.2-12.0); Monocyte# 0.77 X10^3/uL; Monocyte% 6.2 % (0-10); NRBC Flagged by Analyzer 0 % (0-5); Neutrophil # 9.69 X10^3/uL (2.7-7.7); Neutrophil % 78.2 % (47-70); Platelet Count 278 K/mm3 (150-450); RBC Distribution Width CV 12.8 % (11.6-14.6); Red Blood Count 4.51 M/mm3 (4.2-5.4); White Blood Count 12.4 K/mm3 (4.4-11.0)
--- NOTE | 2024-06-22 19:20 | RAD_ITS ---
STUDY: X-RAY CHEST REASON FOR EXAM: Female, 34 years old. Cough TECHNIQUE: PA and lateral COMPARISON: June 22, 2009 FINDINGS: Mild bilateral lower lobe infiltrates slightly worse on the left There is no demonstrated pleural abnormality. Normal size heart. Normal mediastinum and hayley. Normal visualized pulmonary arteries. Normal visualized aortic arch and descending thoracic aorta. Normal visualized thoracic spine. Normal visualized ribs, clavicles, and shoulders. There is no demonstrated abnormality of the visualized soft tissue structures of the upper abdomen. RAD/Chest PA and Lateral IMPRESSION: Mild bilateral lower lobe infiltrates slightly more pronounced on the left Electronically Signed: Jesse Colbert MD at 19:52 EST ,
[2024-06-22 19:33] LABS: Anion Gap 5 (5-15); BUN 8 mg/dL (7-18); BUN/Creat Ratio 7.5 RATIO (10-20); Calcium,Total 8.8 mg/dL (8.5-10.1); Chloride 107 mmol/L (98-107); Creatinine, Serum 1.07 mg/dL (0.55-1.02); EST Glomerular Filtration Rate 63 mL/min (>60); Est Glom Filt Rate - Afr Amer 76 mL/min (>60); Estimated Creatinine Clearance 90.76 ml/min; Glucose 107 mg/dL (74-106); Potassium 3.7 mmol/L (3.5-5.1); Sodium Level 140 mmol/L (136-145)
[2024-06-22 19:53] VITALS: O2SAT 96
[2024-06-22 20:28] VITALS: BP 117/80; PULSE 112; RESP 18; TEMP 39.6; O2SAT 97
[2024-06-22] MEDS: Acetaminophen 500 MG Tablet 1000 MG PO (21:03)
[2024-06-22 21:04] VITALS: BP 99/56; PULSE 116; RESP 22; TEMP 39.6; O2SAT 94
[2024-06-22] MEDS: Azithromycin 250 MG Tablet 500 MG PO (21:33)
== END 2024-06-22 21:34 | disposition home or self-care (01) ==
PROVIDERS: Emergency Provider Emergency Medicine; PCP Student in an Organized Health Care Education/Training Program; Visit Provider Emergency Medicine
DX: J18.9 Pneumonia, unspecified organism (principal); F17.290 Nicotine dependence, other tobacco product, uncomplicated
CPT/HCPCS: 71046; 80048; 85025; 87631; 99284; A4216